=== PATIENT | male | born 1955 | race African-American/Black ===

== ENCOUNTER 2022-10-08 09:08 | Emergency (ER) | payer OTHER ==
[2022-10-08] MEDS ORDERED: Albuterol 200 PUFF (6.7GM INHALER) ONE (11:01)
== END 2022-10-08 11:58 | disposition home or self-care (01) ==
LOC: ERS 09:08
DX: J40 Bronchitis, not specified as acute or chronic (principal); J18.9 Pneumonia, unspecified organism; E11.9 Type 2 diabetes mellitus without complications; I10 Essential (primary) hypertension; F17.210 Nicotine dependence, cigarettes, uncomplicated
CPT/HCPCS: 36416; 71045

== ENCOUNTER 2023-02-06 18:44 | Emergency (ER) | payer OTHER, MEDICAID ==
[2023-02-06] MEDS ORDERED: fentaNYL 50 mcg/mL 1 mL Vial ONE (19:25)
== END 2023-02-06 22:15 | disposition home or self-care (01) ==
LOC: ERS 18:44
DX: S52.501A Unspecified fracture of the lower end of right radius, initial encounter for closed fracture (principal); S12.600A Unspecified displaced fracture of seventh cervical vertebra, initial encounter for closed fracture; E11.9 Type 2 diabetes mellitus without complications; I10 Essential (primary) hypertension; F17.210 Nicotine dependence, cigarettes, uncomplicated; W11.XXXA Fall on and from ladder, initial encounter
CPT/HCPCS: 29125; 70450; 71045; 72125; 72170; 73030; 73110; 96374; 99284; J3010

== ENCOUNTER 2024-07-13 09:45 | Emergency (ER) | payer OTHER ==
[2024-07-13 11:32] LABS: #Basophils 0.06 10x3/uL (0.0-0.2); %Basophils 0.6 % (0.0-1.0); %Eosinophils 1.1 % (0.0-10.0); %Lymphocytes 12.2 % (21.0-51.0); %Neutrophils 76.7 % (42.0-75.0); Hematocrit 52.1 % (42.0-52.0); Hemoglobin 15.5 g/dL (14.0-18.0); Mean Corpuscular HGB CONC 29.8 g/dL (32.0-36.0); Mean Corpuscular Hemoglobin 22.6 pg (27.0-31.0); Mean Corpuscular Volume 75.9 fL (78.0-98.0); Mean Platelet Volume 9.9 fL (7.4-10.4); Platelet Count 649 10x3/uL (130-400); RBC Distribution Width 18.1 % (11.5-14.5); Red Blood Cell (RBC) Count 6.86 mill/uL (4.70-6.10)
[2024-07-13 12:07] LABS: Burr Cells SLIGHT = 2-5 cells HPF (0-1); Microcytosis SLIGHT = 6-15 cells HPF (0-5); Platelet Adequacy Comment Platelets Increased; Polychromasia MODERATE = 3-4 cells HPF (0-2); Reflex for Review?? YES
[2024-07-13 12:14] LABS: ALT (SGPT) 16 U/L (8-55); AST (SGOT) 26 U/L (5-34); Albumin 3.3 g/dL (3.4-4.8); Alkaline Phosphatase 99 U/L (40-110); Anion Gap 12 mmol/L (10-20); BUN (Urea Nitrogen) 14 mg/dL (8.4-25.7); Bilirubin, Total 0.4 mg/dL (0.2-1.2); CRP,High Sensitivity (Inhouse) 0.91 mg/dL (< or = 0.5); Calc. Creatinine Clearance 0 mL/min (70-130); Carbon Dioxide 26 mmol/L (23-31); Chloride 101 mmol/L (98-107); Estimated GFR 68; Globulin 4.4 g/dL (2.4-3.5); Glucose 132 mg/dL (80-115); Potassium 4.2 mmol/L (3.5-5.1); Protein, Total 7.7 g/dL (5.8-8.1); Sodium 135 mmol/L (136-145)
[2024-07-13] MEDS ORDERED: Acetaminophen 325 MG TAB ONE (13:04)
== END 2024-07-13 13:04 | disposition home or self-care (01) ==
LOC: ERS 09:45
DX: E11.621 Type 2 diabetes mellitus with foot ulcer (principal); M79.89 Other specified soft tissue disorders; I10 Essential (primary) hypertension; F17.210 Nicotine dependence, cigarettes, uncomplicated; R60.0 Localized edema; Z86.79 Personal history of other diseases of the circulatory system
CPT/HCPCS: 36415; 80053; 83605; 85025; 85060; 86141

== ENCOUNTER 2025-07-20 03:43 | Emergency (ER) | payer OTHER ==
[2025-07-20 05:25] LABS: #Basophils 0.07 10x3/uL (0.0-0.2); #Eosinophils 0.24 10x3/uL (0.0-0.7); #Monocytes 1.11 10x3/uL (0.11-0.59); #Neutrophils 8.52 10x3/uL (1.40-6.50); %Basophils 0.6 % (0.0-1.0); %Eosinophils 2.0 % (0.0-10.0); %Lymphocytes 14.8 % (21.0-51.0); %Monocytes 9.5 % (0.0-10.0); %Neutrophils 72.7 % (42.0-75.0); Hematocrit 49.0 % (42.0-52.0); Hemoglobin 14.7 g/dL (14.0-18.0); Mean Corpuscular Hemoglobin 22.5 pg (27.0-31.0); Mean Corpuscular Volume 75.2 fL (78.0-98.0); Platelet Count 804 10x3/uL (130-400); Red Blood Cell (RBC) Count 6.52 mill/uL (4.70-6.10); White Blood Cell (WBC) Count 11.72 10x3/uL (4.8-10.8)
[2025-07-20 05:40] LABS: ALT (SGPT) 23 U/L (Less than 45); AST (SGOT) 29 U/L (11-34); Albumin 3.7 g/dL (3.1-4.5); Alkaline Phosphatase 102 U/L (40-110); Anion Gap 15 mmol/L (10-20); BUN (Urea Nitrogen) 14 mg/dL (8.4-25.7); Bilirubin, Total 0.5 mg/dL (0.3-1.2); Calc. Creatinine Clearance 0 mL/min (70-130); Calcium 9.3 mg/dL (7.8-10.44); Carbon Dioxide 25 mmol/L (23-31); Chloride 106 mmol/L (98-107); Globulin 3.5 g/dL (2.4-3.5); Glucose 85 mg/dL (80-115); Potassium 4.6 mmol/L (3.5-5.1); Sodium 141 mmol/L (136-145)
[2025-07-20] MEDS ORDERED: HYDROcodone/Acetaminophen 10/325 mg Tablet ONE (05:59)
[2025-07-20] MEDS ORDERED: Vancomycin 1.5 GM / NS 500ML VIAL-2-BAG IVPB SCH (06:00)
== END 2025-07-20 10:15 | disposition home or self-care (01) ==
LOC: ERS 03:43
DX: L03.115 Cellulitis of right lower limb (principal); M79.661 Pain in right lower leg; I10 Essential (primary) hypertension; E11.9 Type 2 diabetes mellitus without complications; F17.210 Nicotine dependence, cigarettes, uncomplicated; F32.A Depression, unspecified; F41.9 Anxiety disorder, unspecified; Z79.84 Long term (current) use of oral hypoglycemic drugs; Z79.899 Other long term (current) drug therapy
CPT/HCPCS: 73630; 80053; 83605; 85025; 86141; 87040; 93971; 96365; 96366; 96375; 99284; J2270; J2543; J7030